=== PATIENT | male | born 1960 | race African-American/Black ===

== ENCOUNTER 2018-08-03 06:21 | Day surgery (SDC) | payer BC, OTHER ==
[2018-08-02 17:33] VITALS: BMI 37.6
[2018-08-03] MEDS ORDERED: ceFAZolin SODIUM 1 GM VIAL ONE (07:35)
[2018-08-03] MEDS ORDERED: LIDOCAINE HCL/PF 2% SDV 5ML VIAL ONE (07:35)
[2018-08-03] MEDS ORDERED: DEXAMETHASONE SOD PHOSPHATE 4 MG/1 ML VIAL ONE (07:35)
[2018-08-03] MEDS ORDERED: SODIUM CHLORIDE 0.9% P/F 10 ML VIAL IJ ONE (07:35)
[2018-08-03] MEDS ORDERED: MIDAZOLAM HCL 2 MG/2 ML SINGLE DOSE VIAL ONE ×2 (07:35)
[2018-08-03] MEDS ORDERED: PROPOFOL 20 ML ONE (07:36)
--- NOTE | 2018-08-03 08:05 | HP ---
Satellite [facility] - Chief Complaint Chief Complaint: L SHOULDER PAIN History Source: Patient - Past Medical History Allergies/Adverse Reactions: Allergies Allergy/AdvReac Type Severity Reaction Status Date / Time No Known Allergies Allergy Verified 08/03/18 07:10 - Current Medications Current Medications: Home Medications Medication Instructions Recorded ASA - 81 mg PO DAILY 08/02/18 Atorvastatin Ca [Lipitor] 40 mg PO DAILY 08/02/18 Glipizide 5 mg PO DAILY 08/02/18 Amlodipine/Atorvastatin 1 each PO DAILY 08/03/18 [Amlodipine-Atorvast 10-20 mg] Losartan Potassium 40 mg PO DAILY 08/03/18 Metformin HCl [Glucophage] 1,000 mg PO DAILY 08/03/18 Satellite Physical Exam - Physical Examination Vital Signs: Vital Signs Period Temp Pulse Resp BP Sys/Moser Pulse Ox Last 24 Hr 97.9 F 72 18 124/71 97 Extremities: Other (+ WEAKNESS WITH TDA, + IMPINGEMENT) Satellite Impression/Plan - Impression/Plan Impression: L RC TEAR Operative Procedure: L RC REPAIR - ARTHROSCOPY Date to be Performed: 08/03/18
[2018-08-03] MEDS ORDERED: DESFLURANE GAS 240 ML BOTTLE IH ONE (08:23)
[2018-08-03] MEDS ORDERED: SEVOFLURANE 250 ML BTL ONE (08:23)
[2018-08-03] MEDS ORDERED: ceFAZolin SODIUM 1 GM VIAL IVPB ONE (08:30)
[2018-08-03] MEDS ORDERED: ePHEDrine SULFATE 50 MG/1 ML AMPULE ONE (08:51)
--- NOTE | 2018-08-03 09:34 | OP ---
Operative Note - Note: Operative Date: 08/03/18 ([facility]) Pre-Operative Diagnosis: left shoulder impingement, rct Operation: left shoulder arthroscopy with SAD Post-Operative Diagnosis: Same as Pre-op Surgeon: Chase Shaffer Cash Applications Specialist: Babak Gamez Anesthesiologist/ASSEMBLING FABRICATOR: Kristopher Roberson Anesthesia: General, Local Specimens Removed: shavings Estimated Blood Loss (mls): 5 Operative Report Dictated: Yes
--- NOTE | 2018-08-03 10:27 | SPEC ---
DATE OF OPERATION: 08/03/2018 PREOPERATIVE DIAGNOSIS: Left shoulder impingement syndrome, possible small rotator cuff tear. POSTOPERATIVE DIAGNOSIS: Left shoulder impingement syndrome, possible small rotator cuff tear. PROCEDURE: Left shoulder arthroscopy, subacromial decompression. SURGEON: Chase Shaffer MD CRYSTALIZER OPERATOR: Babak Gamez MD COMMUNITY LIFE DIRECTOR: Kristopher Roberson CRNA ANESTHESIOLOGIST: Brooke Calvin MD ANESTHESIA: Left interscalene block and LMA anesthesia. DRAINS: None. COMPLICATIONS: None. BLOOD LOSS: Minimal. BLOOD GIVEN: None. FLUID REPLACEMENT: Plasma-Lyte, 1000 mL. After understanding the potential risks, complications, alternatives and benefits of surgery versus nonsurgical treatment, the patient elected to undergo this procedure. PROCEDURE: The upper extremity was prepped and draped in a sterile fashion. The bony landmarks marked out with a marking pen. Posterior portal was established with a No. 11 scalpel blade and the arthroscope introduced into the glenohumeral joint for diagnostic arthroscopy. All the structures within the shoulder joint looked normal including the labrum, the biceps tendon, the undersurface of the rotator cuff, the glenoid and the humeral head. The area was washed out and the arthroscope introduced into the subacromial space. The patient had a tremendous amount of bursitis in the subacromial space. A spinal needle was used to establish a lateral portal under direct visualization. A No. 11 scalpel blade was used to cut through the skin and a Green cannula introduced into the subacromial space. The ArthroCare ablator was then used to do a soft tissue subacromial decompression of all this adhesive inflammatory bursitis. This revealed a very large bony spur on the inner surface of the anterolateral edge of the acromion. Using a combination of the 5.5-mm oval ketty and the 4.5-mm shaver, I then did a bony decompression, removing this bony spur. Once this was done and the undersurface of the acromion was flat and the bursectomy was completed, the top surface of the rotator cuff was directly visualized and seen to be intact. It moved in unison with the humerus and there was no rotator cuff tear. The shaver was reintroduced into the subacromial space. All debris was removed, and all instrumentation then removed from the shoulder. The patient had a moderate- to large-sized bony subacromial spur but no distal clavicular spur. Then 20 mL of 0.5% Marcaine was introduced into the subacromial space. A 3-0 nylon suture was used in a sport stitch fashion to close the two arthroscopy portals. There was a wash and dry performed with Xeroform, 4 x 4, ABD and tape. Total operative time was 45 minutes. A splint was applied. Patient was taken down out of the beach-chair position and brought to the ambulatory recovery room in stable condition. Michaela [id number]
[2018-08-03 11:14] VITALS: TEMP 97.4
[2018-08-03] MEDS ORDERED: oxyCODONE HCL 5 MG TABLET PO PRN (11:45)
[2018-08-03] MEDS ORDERED: ONDANSETRON 4 MG/2 ML VIAL IVPUSH PRN (11:45)
[2018-08-03] MEDS ORDERED: PROMETHAZINE HCL 25 MG/1 ML VIAL IVPUSH PRN (11:45)
[2018-08-03 12:21] VITALS: BP 126/76; PULSE 85
--- NOTE | 2018-08-05 17:55 | PATH ---
Surgical Pathology Report Patient Name: JE SANTOS Med. Rec. #: [id number] /Age/Gender: 1960 (Age: 58) / M Account: [id number] Location: [facility] SURGICAL Taken: 08/03/2018 Received: 08/03/2018 Reported: 08/05/2018 Physicians: Michaela Lopez M.D. Specimen(s) Received LEFT SHOULDER SHAVINGS Clinical History Left shoulder tear Final Diagnosis LEFT SHOULDER SHAVINGS: FIBROSYNOVIAL AND CARTILAGINOUS TISSUE WITH DEGENERATIVE CHANGE. SEPARATE FRAGMENTS OF UNREMARKABLE SKELETAL MUSCLE. Electronically Signed Lauri Mendosa M.D. Gross Description Received in formalin, labeled "left shoulder shavings," is a 5.0 x 4.2 x 0.5 cm. aggregate of pink-yellow soft tissue fragments. A solar sales representative portion is submitted in one cassette. /08/04/2018 saudi08/04/2018
== END 2018-08-03 12:39 | disposition home or self-care (01) ==
LOC: JASU-SURG 06:21
PROVIDERS: ATTEND Orthopaedic Surgery
PROC: 0RNK4ZZ Release Left Shoulder Joint, Percutaneous Endoscopic Approach (ICD-10-PCS; principal; 2018-08-03 08:00)
DX: M75.42 Impingement syndrome of left shoulder (principal); M75.02 Adhesive capsulitis of left shoulder; M77.9 Enthesopathy, unspecified; I10 Essential (primary) hypertension; E11.9 Type 2 diabetes mellitus without complications; Z79.84 Long term (current) use of oral hypoglycemic drugs
CPT/HCPCS: 82962; 88304-TC; 94760